=== PATIENT | female | born 1950 | race Caucasian/White ===

== ENCOUNTER 2022-03-04 14:32 | Inpatient (IN) | payer BC, MEDICAID ==
[~2022-03-04] VITALS: Ht 157.5 cm; Wt 78.2 kg
[~2022-03-04 14:32] MED LIST: CODE120S2 PO; METH4TAB81 PO; PRED5TAB PO
[2022-03-04] MEDS ORDERED: proCHLORperazine 10mg tablet PO ONE (14:50)
[2022-03-04] MEDS ORDERED: acetaminophen 325mg tablet PO ONE (14:50)
[2022-03-04 15:54] LABS: APTT 25 SECONDS (22-32)
[2022-03-04 15:57] LABS: ALANINE AMINOTRANSFERASE 35 U/L (12-78); ALBUMIN 3.6 G/DL (3.4-5.0); ALKALINE PHOSPHATASE 103 IU/L (46-116); ANION GAP 6 (8-16); ASPARTATE AMINO TRANSFERASE 21 U/L (10-37); BILIRUBIN,TOTAL 0.1 MG/DL (0.1-1.0); BLOOD UREA NITROGEN 21 MG/DL (7-18); BUN/CREATININE RATIO 22.6 (6.6-38.0); CALCIUM 8.8 MG/DL (8.5-10.1); CHLORIDE 107 MMOL/L (99-107); CREATININE 0.93 MG/DL (0.40-0.90); GLUCOSE 131 MG/DL (70-104); POTASSIUM 4.9 MMOL/L (3.5-5.1); SODIUM 142 MMOL/L (135-145); TOTAL CARBON DIOXIDE 28.7 MMOL/L (24-32); TOTAL PROTEIN 7.1 G/DL (6.4-8.2); eGFR 60 ML/MIN
[2022-03-04] MEDS ORDERED: iohexol 350MG/ML 100ml bottle IV ONE (16:11)
--- NOTE | 2022-03-04 16:21 | NUR ---
pt to CT
[2022-03-04 16:31] LABS: CLARITY,URINE CLEAR (Clear); GLUCOSE, URINE NEGATIVE (Neg); KETONES,URINE NEGATIVE (Neg); LEUKOCYTE ESTERASE ,URINE NEGATIVE (Neg); NITRITES, URINE NEGATIVE (Neg); OCCULT BLOOD,URINE NEGATIVE (Neg); PROTEIN,URINE TRACE mg/dl (Neg); UROBILINOGEN,URINE 0.2 E.U/dL (0.2-1.0)
[2022-03-04 16:33] LABS: COLOR,URINE STRAW (Yellow); UA COLLECTION TYPE URINAL
[2022-03-04 16:45] LABS: BASOPHILS # (AUTO) 0.1 X10'3 (0-0.2); EOSINOPHILS # (AUTO) 0.2 X10'3 (0-0.9); EOSINOPHILS % (AUTO) 2.5 % (0-6); HEMATOCRIT 40.7 % (35.0-45.0); HEMOGLOBIN 13.5 g/dl (12.0-16.0); LYMPHOCYTES # (AUTO) 4.3 X10'3 (1.1-4.8); LYMPHOCYTES % (AUTO) 51.5 % (21-51); MEAN CORPUSCULAR HGB CONC 33.1 g/dL (33.0-36.5); MEAN CORPUSCULAR VOLUME 93.7 FL (78-98); MEAN PLATELET VOLUME 9.2 FL (7.4-10.4); MONOCYTES # (AUTO) 0.5 X10'3 (0-0.9); MONOCYTES % (AUTO) 5.9 % (2-12); NEUTROPHILS # (AUTO) 3.3 X10'3 (1.8-7.7); NEUTROPHILS % (AUTO) 39.1 % (42-75); PLATELET COUNT 277 X10'3 (140-440); RED BLOOD COUNT 4.35 X10'6 (4.20-5.60); RED CELL DISTRIBUTION WIDTH 12.9 % (11.5-14.5); WHITE BLOOD COUNT 8.3 X10'3 (4.5-11.0)
[2022-03-04 17:00] LABS: BACTERIA,URINE FEW /HPF (Neg); MUCUS STRANDS FEW /LPF (Neg); SQUAMOUS EPITHELIAL CELL,UR FEW /LPF (FEW); WBC,URINE 0-4 /HPF (0-4)
[2022-03-04 17:01] LABS: RBC,URINE 0-2 /HPF (0-2)
--- NOTE | 2022-03-04 17:30 | NUR ---
ok to stop q 15min neuro checks/VS, per Dr Kerr
[2022-03-04] MEDS ORDERED: acetaminophen 325mg tablet PO PRN ×2 (17:40)
[2022-03-04] MEDS ORDERED: morphine 2 MG/ML inj. syringe IV PRN ×2 (17:40)
[2022-03-04] MEDS ORDERED: potassium Cl 20 mEq SR tablet PO PRN ×2 (17:40)
[2022-03-04] MEDS ORDERED: potassium CL 10mEq/100ml bag 100 ML IV PRN (17:40)
[2022-03-04] MEDS ORDERED: magnesium hydroxide 30ml (MOM) UD suspension PO PRN (17:40)
[2022-03-04] MEDS ORDERED: magnesium Cl slow-release 64mg tablet PO PRN (17:40)
[2022-03-04] MEDS ORDERED: mag hydrox/Alum hydrox/simeth 30ml oral suspension PO PRN (17:40)
[2022-03-04] MEDS ORDERED: PERFLUTREN PROTEIN-A MICROSPHR (Optison) 0.22 MG/ML 3ML VIAL IV ONE (17:40)
[2022-03-04] MEDS ORDERED: HYDROcodone/acetaminophen 10/325mg tab PO PRN (17:40)
[2022-03-04] MEDS ORDERED: naloxone 0.4 mg/ml inj IV PRN (17:40)
[2022-03-04] MEDS ORDERED: ondansetron/PF 4mg/2ml inj IV PRN (17:40)
[2022-03-04] MEDS ORDERED: acetaminophen 650mg rectal suppository RC PRN (17:40)
[2022-03-04] MEDS ORDERED: HYDROcodone/acetaminophen 5mg/325mg tablet PO PRN (17:40)
[2022-03-04] MEDS ORDERED: magnesium 4gm in 100ml NS 100 ML IV PRN (17:40)
[2022-03-04] MEDS ORDERED: magnesium 2GM in 50ml NS 50 ML IV PRN (17:40)
[2022-03-04] MEDS ORDERED: ROPI0.2540 PO (17:48)
[2022-03-04] MEDS ORDERED: CHOL20002 PO (17:48)
[2022-03-04] MEDS ORDERED: OMEP40CA21 PO (17:48)
[2022-03-04] MEDS ORDERED: GLIP5TAB26 PO (17:48)
[2022-03-04] MEDS ORDERED: KETO-97 EACHEYE (17:48)
[2022-03-04] MEDS ORDERED: ENAL10TA19 PO (17:48)
[2022-03-04] MEDS ORDERED: CARB200T8 PO (17:48)
[2022-03-04] MEDS ORDERED: DULA1.5P SQ (17:48)
[2022-03-04] MEDS ORDERED: CETI10TA19 PO (17:48)
[2022-03-04] MEDS ORDERED: ATOR40TA7 PO (17:48)
[2022-03-04] MEDS ORDERED: SITA100T15 PO (17:48)
[2022-03-04 18:48] LABS: MAGNESIUM 2.2 MG/DL (1.5-2.4)
[2022-03-04] MEDS: K and/or MAG REPLACEMENT MC SCH (18:55)
[2022-03-04] MEDS ORDERED: enoxaparin 40mg/0.4ml syringe SQ SCH (20:00)
[2022-03-04] MEDS: docusate sod 100mg capsule PO SCH (20:19)
[2022-03-04] MEDS: ROPINIRole 0.25mg tablet PO SCH (20:22)
[2022-03-04] MEDS: carBAMazepine 100mg chewable tablet PO SCH (20:23)
--- NOTE | 2022-03-04 20:47 | NUR ---
Per Dr Mauro, patient okay to take prilosec OTC that she has with her.
[2022-03-05 02:00] VITALS: BP 119/50
[2022-03-05 06:00] VITALS: BP 106/58
[2022-03-05 06:36] LABS: CHOL/HDL RATIO 3.4 (0.00-4.99); CHOLESTEROL 169 MG/DL (0-200); HDL CHOLESTEROL 49 MG/DL (35-60); LDL CHOLESTEROL 86 MG/DL (50-100); POTASSIUM 4.2 MMOL/L (3.5-5.1); TRIGLYCERIDES 270 MG/DL (20-135)
[2022-03-05] MEDS ORDERED: cetirizine 10mg tablet PO SCH (08:00)
[2022-03-05] MEDS ORDERED: atorvastatin 20mg tablet PO SCH (08:00)
[2022-03-05] MEDS ORDERED: aspirin 81mg, enteric-coated 1 TAB TABLET.DR PO SCH (08:00)
[2022-03-05] MEDS ORDERED: cholecalciferol (vitamin D3) 1,000 unit (25mcg) tablet PO SCH (08:00)
[2022-03-05] MEDS ORDERED: linagliptin 5mg tablet PO SCH (08:00)
[2022-03-05] MEDS ORDERED: pantoprazole 40mg Tablet.DR PO SCH (08:00)
[2022-03-05] MEDS ORDERED: lisinopril 20mg tablet PO SCH (08:00)
[2022-03-05] MEDS: K and/or MAG REPLACEMENT MC SCH (08:00)
[2022-03-05] MEDS: docusate sod 100mg capsule PO SCH (08:07)
[2022-03-05] MEDS: ROPINIRole 0.25mg tablet PO SCH ×2 (08:12→13:26)
[2022-03-05] MEDS: carBAMazepine 100mg chewable tablet PO SCH (08:14)
[2022-03-05 10:11] LABS: BASOPHILS # (AUTO) 0.1 X10'3 (0-0.2); EOSINOPHILS # (AUTO) 0.2 X10'3 (0-0.9); MEAN PLATELET VOLUME 9.4 FL (7.4-10.4); NEUTROPHILS # (AUTO) 2.6 X10'3 (1.8-7.7)
[2022-03-05 10:13] LABS: BASOPHILS % (AUTO) 0.7 % (0-1); EOSINOPHILS % (AUTO) 2.6 % (0-6); HEMATOCRIT 39.5 % (35.0-45.0); HEMOGLOBIN 13.3 g/dl (12.0-16.0); LYMPHOCYTES # (AUTO) 5.2 X10'3 (1.1-4.8); MEAN CORPUSCULAR HEMOGLOBIN 31.9 PG (27.0-31.0); MEAN CORPUSCULAR HGB CONC 33.6 g/dL (33.0-36.5); MEAN CORPUSCULAR VOLUME 94.9 FL (78-98); MONOCYTES # (AUTO) 0.4 X10'3 (0-0.9); NEUTROPHILS % (AUTO) 30.7 % (42-75); PLATELET COUNT 260 X10'3 (140-440); RED BLOOD COUNT 4.16 X10'6 (4.20-5.60); WHITE BLOOD COUNT 8.5 X10'3 (4.5-11.0)
[2022-03-05 10:19] LABS: ALANINE AMINOTRANSFERASE 31 U/L (12-78); ALBUMIN 3.1 G/DL (3.4-5.0); ALBUMIN/GLOBULIN RATIO 0.9 (1.1-1.5); ALKALINE PHOSPHATASE 92 IU/L (46-116); ANION GAP 12 (8-16); ASPARTATE AMINO TRANSFERASE 19 U/L (10-37); BILIRUBIN,TOTAL 0.2 MG/DL (0.1-1.0); BLOOD UREA NITROGEN 20 MG/DL (7-18); CALCIUM 9.2 MG/DL (8.5-10.1); CHLORIDE 102 MMOL/L (99-107); CREATININE 0.91 MG/DL (0.40-0.90); GLUCOSE 120 MG/DL (70-104); SODIUM 138 MMOL/L (135-145); TOTAL CARBON DIOXIDE 23.8 MMOL/L (24-32); TOTAL PROTEIN 6.4 G/DL (6.4-8.2); eGFR 61 ML/MIN
[2022-03-05 10:33] LABS: PLATELET ESTIMATE NORMAL; TOTAL CELLS COUNTED 100
[2022-03-05 10:57] LABS: HEMOGLOBIN A1C 8.2 % (4.5-6.2)
[2022-03-05 11:00] VITALS: BP 126/63
--- NOTE | 2022-03-05 14:33 | NUR ---
Patient refused BG check @1200
--- NOTE | 2022-03-05 14:53 | NUR ---
Patient taken in bed for procedure at 1445 Addendum: 03/05/22 at 1501 by Mendy Thurston LVN Patient taken in bed for procedure at 1145
[2022-03-05 15:00] VITALS: BP 155/71
[2022-03-05] MEDS ORDERED: ATOR-2 PO (15:41)
[2022-03-05] MEDS ORDERED: ASPI-1071 PO (15:41)
--- NOTE | 2022-03-05 17:21 | NUR ---
Patient stable for DC per MD orders. PIV removed and patient tolerated well, tele monitoring removed. Rx faxed to [facility] in [place] per patients request. Patient brought down stairs via w/c and helped in to car with family. Addendum: 03/05/22 at 1726 by Mendy Thurston LVN All personal belongings sent with patient. Reviewed all discharge paper work with patient and she verbalized understanding.
--- NOTE | 2022-03-05 17:52 | NUR ---
Orientee documentation: I have reviewed and agree with all interventions, assessments performed and documented by LUZ MARIA Brooke II.
[2022-03-09] MEDS ORDERED: Dulaglutide (Trulicity) 1.5 MG SQ SCH (18:00)
== END 2022-03-05 16:55 | disposition home or self-care (01) | DRG 103 ==
LOC: ER 14:32 → ED HOLD 17:46 → PCU 3S 23:52
PROVIDERS: ADMIT Family Medicine; ATTEND Family Medicine
PROC: B3251ZZ Computerized Tomography (CT Scan) of Bilateral Common Carotid Arteries using Low Osmolar Contrast (ICD-10-PCS; principal; 2022-03-04)
PROC: B32G1ZZ Computerized Tomography (CT Scan) of Bilateral Vertebral Arteries using Low Osmolar Contrast (ICD-10-PCS; 2022-03-04)
PROC: B32R1ZZ Computerized Tomography (CT Scan) of Intracranial Arteries using Low Osmolar Contrast (ICD-10-PCS; 2022-03-04)
PROC: B3281ZZ Computerized Tomography (CT Scan) of Bilateral Internal Carotid Arteries using Low Osmolar Contrast (ICD-10-PCS; 2022-03-04)
DX: G44.209 Tension-type headache, unspecified, not intractable (principal); E11.22 Type 2 diabetes mellitus with diabetic chronic kidney disease; E78.5 Hyperlipidemia, unspecified; G25.81 Restless legs syndrome; I12.9 Hypertensive chronic kidney disease with stage 1 through stage 4 chronic kidney disease, or unspecified chronic kidney disease; J30.9 Allergic rhinitis, unspecified; N18.9 Chronic kidney disease, unspecified; F41.9 Anxiety disorder, unspecified; R06.83 Snoring; R09.82 Postnasal drip; Z86.73 Personal history of transient ischemic attack (TIA), and cerebral infarction without residual deficits; Z91.040 Latex allergy status; Z79.899 Other long term (current) drug therapy
CPT/HCPCS: 36415; 70450; 70496; 70498; 70551; 71045; 80053; 80061; 81001; 82948; 83036; 83735; 84443; 85007; 85025; 85610; 85651; 85730; 86885; 86900; 86901; 87081; 93005; 93306; 99285; G0378; J1650; Q0164; Q9967

== ENCOUNTER 2024-04-23 11:38 | Emergency (ER) | payer MEDICARE, MEDICAID ==
[~2024-04-23] VITALS: Ht 165.1 cm; Wt 72.7 kg
[~2024-04-23 11:38] MED LIST changes: +ASPI-1071 PO; +ATOR-2 PO; +CARB200T8 PO; +CETI10TA19 PO; +CHOL20002 PO; -CODE120S2 PO; +DULA1.5P SQ; +ENAL-78 PO; +GLIP5TAB26 PO; +KETO-97 EACHEYE; -METH4TAB81 PO; +OMEP40CA21 PO; -PRED5TAB PO; +ROPI0.2544 PO; +SITA100T15 PO
[2024-04-23 12:14] VITALS: BP 132/62; PULSE 62; RESP 18; TEMP 97.8; O2SAT 98
[2024-04-23 14:01] LABS: BASOPHILS # (AUTO) 0.1 X10'3 (0-0.2); BASOPHILS % (AUTO) 0.9 % (0-1); EOSINOPHILS # (AUTO) 0.2 X10'3 (0-0.9); EOSINOPHILS % (AUTO) 2.7 % (0-6); HEMATOCRIT 41.3 % (35.0-45.0); HEMOGLOBIN 13.5 g/dl (12.0-16.0); LYMPHOCYTES # (AUTO) 3.3 X10'3 (1.1-4.8); LYMPHOCYTES % (AUTO) 47.1 % (21-51); MEAN CORPUSCULAR HEMOGLOBIN 31.5 PG (27.0-31.0); MEAN CORPUSCULAR HGB CONC 32.8 g/dL (33.0-36.5); MEAN PLATELET VOLUME 8.7 FL (7.4-10.4); MONOCYTES # (AUTO) 0.4 X10'3 (0-0.9); MONOCYTES % (AUTO) 5.4 % (2-12); NEUTROPHILS # (AUTO) 3.1 X10'3 (1.8-7.7); NEUTROPHILS % (AUTO) 43.9 % (42-75); PLATELET COUNT 258 X10'3 (140-440)
[2024-04-23 14:22] LABS: ALBUMIN 3.5 G/DL (3.4-5.0); ANION GAP 9 (8-16); BLOOD UREA NITROGEN 26 MG/DL (7-18); BUN/CREATININE RATIO 27.7 (10.0-20.0); CALCIUM 9.2 MG/DL (8.5-10.1); CHLORIDE 105 MMOL/L (99-107); CREATININE 0.94 MG/DL (0.40-0.90); GLUCOSE 138 MG/DL (70-104); POTASSIUM 4.5 MMOL/L (3.5-5.1); PRO BRAIN NATRIURETIC PEPTIDE 87 PG/ML (0-125); SODIUM 139 MMOL/L (135-145); TOTAL CARBON DIOXIDE 24.8 MMOL/L (24-32); eCRCL 49 ML/MIN; eGFR 59 ML/MIN
== END 2024-04-23 17:54 | disposition home or self-care (01) ==
LOC: ER 11:39
DX: R51.9 Headache, unspecified (principal); Z91.040 Latex allergy status; Z86.73 Personal history of transient ischemic attack (TIA), and cerebral infarction without residual deficits; I10 Essential (primary) hypertension; E11.9 Type 2 diabetes mellitus without complications
CPT/HCPCS: 36415; 70450; 71045; 80048; 83880; 84484; 85025; 93005; 99285